=== PATIENT | male | born 1965 | race Two or more races ===

== ENCOUNTER 2020-06-03 12:13 | Inpatient (IN) | payer OTHER ==
[~2020-06-03] VITALS: Ht 172.7 cm; Wt 97.2 kg
--- NOTE | 2020-06-03 12:38 | NUR ---
PATIENT WHEELED BACK FROM TRIAGE WITH CHIEF C./O SOB. PATIENT STATES THIS STARTED YESTYERDAY, PATIENT STATES HE HAS BEEN COUGHING. PATIENT DENIES N/V/D, DENIES DEWITT, DENIES FEVER. PATIENT STATES NO ONE ELSE AT HOME IS SICK. NADN, PATIENT CONNECTED TO ORDERLY, O2 SATURATION 87% RA, PLACED PATIENT ON 3 LPM NC, O2 SATURATION INCREASED TO 92%, CALL LIGHT WITHIN REACH.
--- NOTE | 2020-06-03 13:10 | NUR ---
ER PROVIDER AT BEDSIDE FOR EVALUATION.
--- NOTE | 2020-06-03 13:37 | NUR ---
IMAGING AT BEDSIDE.
[2020-06-03 13:52] LABS: BASOPHILS % (AUTO) 0 % (0-1); EOSINOPHILS % (AUTO) 0 % (1-7); LYMPHOCYTES % (AUTO) 10 % (22-44); MEAN CORPUSCULAR HEMOGLOBIN 31.7 pg (27.5-34.5); MEAN CORPUSCULAR HGB CONC 34.9 g/dL (33.2-36.2); MEAN PLATELET VOLUME 8.9 fL (7.4-10.4); MONOCYTES % (AUTO) 10 % (2-9); NEUTROPHILS % (AUTO) 80 % (42-75); PLATELET COUNT 198 x10^3/uL (130-400); RED BLOOD COUNT 4.74 x10^6/uL (4.38-5.82); RED CELL DISTRIBUTION WIDTH 12.2 % (9.4-14.8)
[2020-06-03 13:55] LABS: MD NO
[2020-06-03 13:57] LABS: ALANINE AMINOTRANSFERASE 27 U/L (12-78); ALBUMIN 2.9 g/dL (3.4-5.0); ANION GAP 4 mmol/L (5-15); CALCIUM 8.3 mg/dL (8.5-10.1); CHLORIDE 99 mmol/L (98-107); CREATININE 0.96 mg/dL (0.7-1.3)
[2020-06-03 14:00] LABS: ALKALINE PHOSPHATASE 52 U/L (45-117); BILIRUBIN,TOTAL 0.8 mg/dL (0.2-1.0); TROPONIN I < 0.015 ng/mL (0.000-0.045)
[2020-06-03] MEDS ORDERED: CEFTRIAXONE PMX 1GM/50ML 50 ML ONE (14:42)
--- NOTE | 2020-06-03 14:56 | NUR ---
20 GAUGE IV STARTED LEFT AC, ANA LAURA DESAI, SHAWNA, CALL LIGHT WITHIN REACH.
[2020-06-03] MEDS ORDERED: CEFTRIAXONE PMX 1GM/50ML 50 ML IVPB ONE (15:00)
[2020-06-03] MEDS ORDERED: ACETAMINOPHEN 325 MG TABLET PO PRN (15:30)
[2020-06-03] MEDS ORDERED: ONDANSETRON 2MG/ML, 2ML IVPush PRN (15:30)
[2020-06-03] MEDS ORDERED: DIPHENHYDRAMINE 25 MG CAPSULE PO PRN (15:30)
[2020-06-03] MEDS ORDERED: hydrALAzine 20 MG/ML, 1ML IVPush PRN (15:30)
[2020-06-03] MEDS ORDERED: SODIUM CHLORIDE FLUSH 10ML SYR IVF ONE (15:30)
[2020-06-03] MEDS ORDERED: THIAMINE 100MG TABLET PO ONE (15:30)
[2020-06-03] MEDS ORDERED: ONDANSETRON ODT 4 MG PO PRN (15:30)
[2020-06-03] MEDS ORDERED: AZITHROMYCIN 500 MG in SODIUM CHLORIDE 0.9% 250 ML IV ONE (16:00)
[2020-06-03] MEDS ORDERED: ENOXAPARIN 40 MG/0.4 ML ONE (16:06)
[2020-06-03] MEDS ORDERED: THIAMINE 100MG TABLET ONE (16:07)
[2020-06-03] MEDS ORDERED: ASCORBIC ACID 500 MG TABLET ONE (16:07)
[2020-06-03] MEDS: ENOXAPARIN 40 MG/0.4 ML SQ SCH (16:24)
[2020-06-03] MEDS: SODIUM CHLORIDE 0.9% 1,000 ML IV SCH (16:25)
[2020-06-03] MEDS: ASCORBIC ACID 500 MG TABLET PO SCH (16:25)
--- NOTE | 2020-06-03 16:30 | NUR ---
PATIENT MEDICATED PER eMAR, FOOD TRAY ORDERED, O2 SATURATION DROPPED TO 78%-80%. PLACED PATIENT ON 4 LPM SIMPLE O2 MASK, OXYGEN SATURATION BACK UP TO 94%-95%. NADN, CONNECTED TO [employer]DRETTE OWNER, CALL LIGHT WITHIN REACH.
--- NOTE | 2020-06-03 16:59 | NUR ---
FOOD TRAY PROVIDED TO PATIENT.
--- NOTE | 2020-06-03 18:22 | NUR ---
[facility] O2 SATURATION IS 95%-96% ON 6 LPM NON-REBREATHER MASK, CALL LIGHT WITHIN REACH, WILL CONTINUE TO MONITOR.
--- NOTE | 2020-06-03 18:38 | NUR ---
PATIENT TRANSFERRED IN STABLE CONDITION VIA GURNEY TO [facility] FLOOR WITH ANALYSIS EVALUATOR. ALL PATIENT BELONGINGS GATHERED AND TAKEN WITH PATIENT TO FLOOR.
[2020-06-03 18:46] VITALS: BP 113/70
[2020-06-03 20:00] VITALS: BP 110/78
[2020-06-03] MEDS: GUAIFENESIN/DM 200-20MG, 10ML UDC PO PRN (20:48)
[2020-06-04] VITALS (8 sets, daily range): BP systolic 109–127; BP diastolic 55–84
[2020-06-04] MEDS: SODIUM CHLORIDE 0.9% 1,000 ML IV SCH ×2 (01:28→12:32)
[2020-06-04 06:29] LABS: BASOPHILS % (AUTO) 0 % (0-1); EOSINOPHILS % (AUTO) 0 % (1-7); LYMPHOCYTES % (AUTO) 11 % (22-44); MEAN CORPUSCULAR HEMOGLOBIN 31.8 pg (27.5-34.5); MEAN CORPUSCULAR HGB CONC 34.9 g/dL (33.2-36.2); MEAN PLATELET VOLUME 8.9 fL (7.4-10.4); MONOCYTES % (AUTO) 8 % (2-9); NEUTROPHILS % (AUTO) 81 % (42-75); PLATELET COUNT 182 x10^3/uL (130-400); RED BLOOD COUNT 4.65 x10^6/uL (4.38-5.82)
[2020-06-04 06:33] LABS: MD NO
[2020-06-04 06:43] LABS: ALBUMIN 2.5 g/dL (3.4-5.0); ANION GAP 6 mmol/L (5-15); CALCIUM 7.9 mg/dL (8.5-10.1); CHLORIDE 103 mmol/L (98-107)
[2020-06-04 06:52] LABS: ALANINE AMINOTRANSFERASE 34 U/L (12-78); ALKALINE PHOSPHATASE 48 U/L (45-117); BILIRUBIN,TOTAL 0.9 mg/dL (0.2-1.0); CREATININE 0.58 mg/dL (0.7-1.3); TOTAL PROTEIN 6.6 g/dL (6.4-8.2)
[2020-06-04] MEDS: CHOLECALCIFEROL 1,000 UNIT TABLET PO SCH (08:05)
[2020-06-04] MEDS: ZINC SULFATE 220 MG CAPSULE PO SCH (08:05)
[2020-06-04] MEDS: DEXAMETHASONE 4 MG TABLET PO SCH (08:05)
[2020-06-04] MEDS: AZITHROMYCIN 500 MG TABLET PO SCH (08:05)
[2020-06-04] MEDS: ASCORBIC ACID 500 MG TABLET PO SCH ×2 (08:05→16:41)
[2020-06-04] MEDS ORDERED: REMDESIVIR 200 MG in SODIUM CHLORIDE 0.9% 250 ML IVPB ONE (14:00)
[2020-06-04] MEDS: ENOXAPARIN 40 MG/0.4 ML SQ SCH (16:41)
[2020-06-04] MEDS: CEFTRIAXONE PMX 1GM/50ML 50 ML IV SCH (16:41)
[2020-06-04] MEDS: BENZONATATE 100 MG CAPSULE PO SCH ×2 (17:37→23:41)
[2020-06-04] MEDS: GUAIFENESIN/DM 200-20MG, 10ML UDC PO PRN (17:37)
[2020-06-05] MEDS: GUAIFENESIN/DM 200-20MG, 10ML UDC PO PRN ×2 (00:54→19:43)
[2020-06-05] MEDS: AZITHROMYCIN 500 MG TABLET PO SCH (08:33)
[2020-06-05] MEDS: ZINC SULFATE 220 MG CAPSULE PO SCH (08:34)
[2020-06-05] MEDS: ASCORBIC ACID 500 MG TABLET PO SCH ×2 (08:34→16:07)
[2020-06-05] MEDS: CHOLECALCIFEROL 1,000 UNIT TABLET PO SCH (08:34)
[2020-06-05] MEDS: DEXAMETHASONE 4 MG TABLET PO SCH (08:34)
[2020-06-05] MEDS: BENZONATATE 100 MG CAPSULE PO SCH ×2 (08:34→16:07)
[2020-06-05 08:37] VITALS: BP 114/77
[2020-06-05 14:02] VITALS: BP 108/71
[2020-06-05] MEDS: REMDESIVIR 100 MG in SODIUM CHLORIDE 0.9% 250 ML IVPB SCH (14:08)
[2020-06-05 14:40] LABS: ALANINE AMINOTRANSFERASE 45 U/L (12-78); ALBUMIN 2.6 g/dL (3.4-5.0); ANION GAP 7 mmol/L (5-15); CALCIUM 8.6 mg/dL (8.5-10.1); CHLORIDE 106 mmol/L (98-107); CREATININE 0.75 mg/dL (0.7-1.3)
[2020-06-05 14:42] LABS: ALKALINE PHOSPHATASE 48 U/L (45-117); BILIRUBIN,TOTAL 0.4 mg/dL (0.2-1.0); TOTAL PROTEIN 6.9 g/dL (6.4-8.2)
[2020-06-05] MEDS: CEFTRIAXONE PMX 1GM/50ML 50 ML IV SCH (16:00)
[2020-06-05] MEDS: ENOXAPARIN 40 MG/0.4 ML SQ SCH (16:07)
[2020-06-05 19:45] VITALS: BP_SYST 108; BP_SYST 114; BP_DIAS 71; BP_DIAS 75
[2020-06-05 22:14] VITALS: BP 114/75
[2020-06-06] VITALS (7 sets, daily range): BP systolic 112–128; BP diastolic 77–86
[2020-06-06] MEDS: BENZONATATE 100 MG CAPSULE PO SCH ×4 (00:24→20:35)
[2020-06-06 06:30] LABS: CALCIUM 8.8 mg/dL (8.5-10.1); CHLORIDE 104 mmol/L (98-107)
[2020-06-06 06:36] LABS: ALANINE AMINOTRANSFERASE 43 U/L (12-78); ALBUMIN 2.5 g/dL (3.4-5.0); ALKALINE PHOSPHATASE 48 U/L (45-117); ANION GAP 7 mmol/L (5-15); BILIRUBIN,TOTAL 0.6 mg/dL (0.2-1.0); CREATININE 0.69 mg/dL (0.7-1.3); TOTAL PROTEIN 6.8 g/dL (6.4-8.2)
[2020-06-06 08:56] LABS: HCT (SEDRATE) 42.5 % (39.2-51.8)
[2020-06-06 09:08] LABS: C-REACTIVE PROTEIN, QUANT 6.1 mg/dL (0.02-0.49)
[2020-06-06] MEDS: CHOLECALCIFEROL 1,000 UNIT TABLET PO SCH (09:46)
[2020-06-06] MEDS: ASCORBIC ACID 500 MG TABLET PO SCH ×2 (09:46→15:07)
[2020-06-06] MEDS: DEXAMETHASONE 4 MG TABLET PO SCH (09:46)
[2020-06-06] MEDS: AZITHROMYCIN 500 MG TABLET PO SCH (09:46)
[2020-06-06] MEDS: ZINC SULFATE 220 MG CAPSULE PO SCH (09:46)
[2020-06-06] MEDS: ENOXAPARIN 40 MG/0.4 ML SQ SCH (15:07)
[2020-06-06] MEDS: REMDESIVIR 100 MG in SODIUM CHLORIDE 0.9% 250 ML IVPB SCH (15:07)
[2020-06-06] MEDS: GUAIFENESIN/DM 200-20MG, 10ML UDC PO PRN (15:18)
[2020-06-06] MEDS: CEFTRIAXONE PMX 1GM/50ML 50 ML IV SCH (17:47)
[2020-06-07 00:56] VITALS: BP 116/81
[2020-06-07] MEDS: GUAIFENESIN/DM 200-20MG, 10ML UDC PO PRN ×2 (01:07→15:15)
[2020-06-07 06:51] VITALS: BP 103/68
[2020-06-07] MEDS ORDERED: SODIUM CHLORIDE NASAL SPRAY 45ML BOTTLE NAS PRN (08:00)
[2020-06-07 08:01] LABS: BASOPHILS % (AUTO) 1 % (0-1); EOSINOPHILS % (AUTO) 0 % (1-7); LYMPHOCYTES % (AUTO) 8 % (22-44); MEAN CORPUSCULAR HEMOGLOBIN 32.1 pg (27.5-34.5); MEAN CORPUSCULAR HGB CONC 35.2 g/dL (33.2-36.2); MEAN PLATELET VOLUME 9.5 fL (7.4-10.4); MONOCYTES % (AUTO) 9 % (2-9); NEUTROPHILS % (AUTO) 82 % (42-75); PLATELET COUNT 320 x10^3/uL (130-400); RED BLOOD COUNT 4.91 x10^6/uL (4.38-5.82); RED CELL DISTRIBUTION WIDTH 12.3 % (9.4-14.8)
[2020-06-07 08:12] LABS: CHLORIDE 103 mmol/L (98-107)
[2020-06-07 08:18] LABS: D-DIMER 0.78 ug/mlFEU (0.00-0.52); INTERNATIONAL NORMALIZED RATIO 1.27 (0.93-1.1); PROTHROMBIN TIME 13.4 Seconds (9.6-11.5)
[2020-06-07 08:34] LABS: ANION GAP 9 mmol/L (5-15); CALCIUM 8.8 mg/dL (8.5-10.1); CREATININE 0.67 mg/dL (0.7-1.3)
[2020-06-07 08:35] LABS: ALANINE AMINOTRANSFERASE 49 U/L (12-78); ALBUMIN 2.6 g/dL (3.4-5.0); ALKALINE PHOSPHATASE 52 U/L (45-117); BILIRUBIN,TOTAL 0.7 mg/dL (0.2-1.0); TOTAL PROTEIN 7.1 g/dL (6.4-8.2)
[2020-06-07 09:43] LABS: MD NO
[2020-06-07 09:44] LABS: HCT (SEDRATE) 44.8 % (39.2-51.8)
[2020-06-07] MEDS: ZINC SULFATE 220 MG CAPSULE PO SCH (09:52)
[2020-06-07] MEDS: ASCORBIC ACID 500 MG TABLET PO SCH ×2 (09:52→15:15)
[2020-06-07] MEDS: CHOLECALCIFEROL 1,000 UNIT TABLET PO SCH (09:52)
[2020-06-07] MEDS: BENZONATATE 100 MG CAPSULE PO SCH ×3 (09:52→19:40)
[2020-06-07] MEDS: AZITHROMYCIN 500 MG TABLET PO SCH (09:52)
[2020-06-07] MEDS: DEXAMETHASONE 4 MG TABLET PO SCH (09:52)
[2020-06-07 12:53] VITALS: BP 113/66
[2020-06-07] MEDS: REMDESIVIR 100 MG in SODIUM CHLORIDE 0.9% 250 ML IVPB SCH (14:25)
[2020-06-07] MEDS: ENOXAPARIN 40 MG/0.4 ML SQ SCH (15:16)
[2020-06-07] MEDS: DOCUSATE 100 MG CAPSULE PO PRN (15:16)
[2020-06-07] MEDS: CEFTRIAXONE PMX 1GM/50ML 50 ML IV SCH (17:24)
[2020-06-07 19:27] VITALS: BP 107/71
[2020-06-08 02:36] VITALS: BP 118/75
[2020-06-08 04:27] LABS: BASOPHILS % (AUTO) 0 % (0-1); EOSINOPHILS % (AUTO) 0 % (1-7); LYMPHOCYTES % (AUTO) 9 % (22-44); MEAN CORPUSCULAR HEMOGLOBIN 31.8 pg (27.5-34.5); MEAN CORPUSCULAR HGB CONC 34.5 g/dL (33.2-36.2); MEAN PLATELET VOLUME 9.3 fL (7.4-10.4); MONOCYTES % (AUTO) 11 % (2-9); NEUTROPHILS % (AUTO) 80 % (42-75); PLATELET COUNT 356 x10^3/uL (130-400); RED BLOOD COUNT 5.04 x10^6/uL (4.38-5.82); RED CELL DISTRIBUTION WIDTH 12.5 % (9.4-14.8)
[2020-06-08 04:32] LABS: MD NO
[2020-06-08 04:37] LABS: CHLORIDE 102 mmol/L (98-107)
[2020-06-08 04:47] LABS: ALANINE AMINOTRANSFERASE 45 U/L (12-78); ALBUMIN 2.7 g/dL (3.4-5.0); ALKALINE PHOSPHATASE 51 U/L (45-117); ANION GAP 6 mmol/L (5-15); BILIRUBIN,TOTAL 0.5 mg/dL (0.2-1.0); CALCIUM 8.9 mg/dL (8.5-10.1); CREATININE 0.64 mg/dL (0.7-1.3); D-DIMER 0.75 ug/mlFEU (0.00-0.52); INTERNATIONAL NORMALIZED RATIO 1.27 (0.93-1.1); PROTHROMBIN TIME 13.4 Seconds (9.6-11.5)
[2020-06-08 05:03] LABS: HCT (SEDRATE) 46.4 % (39.2-51.8)
[2020-06-08 06:35] VITALS: BP 112/76
[2020-06-08] MEDS ORDERED: Enoxaparin 1 mg/kg protocol SQ SCH (07:00)
[2020-06-08] MEDS: CHOLECALCIFEROL 1,000 UNIT TABLET PO SCH (08:08)
[2020-06-08] MEDS: BENZONATATE 100 MG CAPSULE PO SCH ×3 (08:09→20:33)
[2020-06-08] MEDS: AZITHROMYCIN 500 MG TABLET PO SCH (08:09)
[2020-06-08] MEDS: DEXAMETHASONE 4 MG TABLET PO SCH (08:09)
[2020-06-08] MEDS: ZINC SULFATE 220 MG CAPSULE PO SCH (08:09)
[2020-06-08] MEDS: GUAIFENESIN/DM 200-20MG, 10ML UDC PO PRN ×2 (08:14→18:14)
[2020-06-08] MEDS: DOCUSATE 100 MG CAPSULE PO PRN (08:15)
[2020-06-08] MEDS: ASCORBIC ACID 500 MG TABLET PO SCH ×2 (08:15→15:52)
[2020-06-08 12:00] VITALS: BP 125/69
[2020-06-08] MEDS: REMDESIVIR 100 MG in SODIUM CHLORIDE 0.9% 250 ML IVPB SCH (13:18)
[2020-06-08] MEDS: ENOXAPARIN 40 MG/0.4 ML SQ SCH (15:52)
[2020-06-08] MEDS: CEFTRIAXONE PMX 1GM/50ML 50 ML IV SCH (16:14)
[2020-06-08 19:39] VITALS: BP 104/71
[2020-06-09 02:46] VITALS: BP 121/81
[2020-06-09 03:36] LABS: BASOPHILS % (AUTO) 0 % (0-1); EOSINOPHILS % (AUTO) 0 % (1-7); LYMPHOCYTES % (AUTO) 9 % (22-44); MEAN CORPUSCULAR HEMOGLOBIN 31.3 pg (27.5-34.5); MEAN CORPUSCULAR HGB CONC 34.4 g/dL (33.2-36.2); MEAN PLATELET VOLUME 9.2 fL (7.4-10.4); MONOCYTES % (AUTO) 9 % (2-9); NEUTROPHILS % (AUTO) 81 % (42-75); PLATELET COUNT 381 x10^3/uL (130-400); RED BLOOD COUNT 4.89 x10^6/uL (4.38-5.82); RED CELL DISTRIBUTION WIDTH 12.2 % (9.4-14.8)
[2020-06-09 03:39] LABS: MD NO
[2020-06-09 03:51] LABS: CHLORIDE 102 mmol/L (98-107)
[2020-06-09 04:02] LABS: ALANINE AMINOTRANSFERASE 39 U/L (12-78); ALBUMIN 2.5 g/dL (3.4-5.0); ALKALINE PHOSPHATASE 52 U/L (45-117); ANION GAP 5 mmol/L (5-15); BILIRUBIN,TOTAL 0.4 mg/dL (0.2-1.0); CALCIUM 8.5 mg/dL (8.5-10.1); CREATININE 0.66 mg/dL (0.7-1.3); TOTAL PROTEIN 6.7 g/dL (6.4-8.2)
[2020-06-09 06:52] VITALS: BP 103/67
[2020-06-09] MEDS: ZINC SULFATE 220 MG CAPSULE PO SCH (07:47)
[2020-06-09] MEDS: BENZONATATE 100 MG CAPSULE PO SCH ×3 (07:47→20:39)
[2020-06-09] MEDS: DEXAMETHASONE 4 MG TABLET PO SCH (07:48)
[2020-06-09] MEDS: AZITHROMYCIN 500 MG TABLET PO SCH (07:48)
[2020-06-09] MEDS: CHOLECALCIFEROL 1,000 UNIT TABLET PO SCH (07:48)
[2020-06-09] MEDS: ASCORBIC ACID 500 MG TABLET PO SCH ×2 (07:48→16:29)
[2020-06-09 12:38] VITALS: BP 109/61
[2020-06-09] MEDS: GUAIFENESIN/DM 200-20MG, 10ML UDC PO PRN (12:58)
[2020-06-09] MEDS ORDERED: FUROSEMIDE 20 MG/2 ML IV ONE (16:00)
[2020-06-09] MEDS: ENOXAPARIN 40 MG/0.4 ML SQ SCH (16:28)
[2020-06-09] MEDS: CEFTRIAXONE PMX 1GM/50ML 50 ML IV SCH (16:29)
[2020-06-09 21:02] VITALS: BP 107/77
[2020-06-10 02:46] VITALS: BP 106/70
[2020-06-10 03:43] LABS: BASOPHILS % (AUTO) 1 % (0-1); EOSINOPHILS % (AUTO) 0 % (1-7); LYMPHOCYTES % (AUTO) 8 % (22-44); MEAN CORPUSCULAR HEMOGLOBIN 31.7 pg (27.5-34.5); MEAN CORPUSCULAR HGB CONC 34.7 g/dL (33.2-36.2); MEAN PLATELET VOLUME 8.8 fL (7.4-10.4); MONOCYTES % (AUTO) 8 % (2-9); NEUTROPHILS % (AUTO) 82 % (42-75); PLATELET COUNT 428 x10^3/uL (130-400); RED BLOOD COUNT 5.01 x10^6/uL (4.38-5.82); RED CELL DISTRIBUTION WIDTH 12.2 % (9.4-14.8)
[2020-06-10 03:47] LABS: MD NO
[2020-06-10 03:50] LABS: ALBUMIN 2.5 g/dL (3.4-5.0); ANION GAP 4 mmol/L (5-15); CALCIUM 8.6 mg/dL (8.5-10.1); CHLORIDE 101 mmol/L (98-107)
[2020-06-10 04:07] LABS: ALANINE AMINOTRANSFERASE 36 U/L (12-78); ALKALINE PHOSPHATASE 54 U/L (45-117); BILIRUBIN,TOTAL 0.6 mg/dL (0.2-1.0); C-REACTIVE PROTEIN, QUANT 1.44 mg/dL (0.02-0.49); CREATININE 0.77 mg/dL (0.7-1.3); TOTAL PROTEIN 6.8 g/dL (6.4-8.2)
[2020-06-10] MEDS: DEXAMETHASONE 4 MG TABLET PO SCH (07:51)
[2020-06-10] MEDS: CHOLECALCIFEROL 1,000 UNIT TABLET PO SCH (07:51)
[2020-06-10] MEDS: BENZONATATE 100 MG CAPSULE PO SCH ×3 (07:51→21:22)
[2020-06-10] MEDS: ZINC SULFATE 220 MG CAPSULE PO SCH (07:51)
[2020-06-10] MEDS: ASCORBIC ACID 500 MG TABLET PO SCH ×2 (07:51→17:03)
[2020-06-10 08:06] VITALS: BP 93/58
[2020-06-10 12:43] VITALS: BP 105/69
[2020-06-10] MEDS: ENOXAPARIN 40 MG/0.4 ML SQ SCH (15:27)
[2020-06-10] MEDS: CEFTRIAXONE PMX 1GM/50ML 50 ML IV SCH (15:28)
[2020-06-10] MEDS ORDERED: FUROSEMIDE 20 MG/2 ML IV ONE (18:00)
[2020-06-10 21:23] VITALS: BP 112/73
[2020-06-11 02:45] VITALS: BP 101/70
[2020-06-11 06:07] LABS: ALBUMIN 2.5 g/dL (3.4-5.0); ANION GAP 3 mmol/L (5-15); CALCIUM 8.3 mg/dL (8.5-10.1); CHLORIDE 103 mmol/L (98-107)
[2020-06-11 06:11] LABS: ALANINE AMINOTRANSFERASE 45 U/L (12-78); ALKALINE PHOSPHATASE 57 U/L (45-117); BILIRUBIN,TOTAL 0.4 mg/dL (0.2-1.0); CREATININE 0.73 mg/dL (0.7-1.3); TOTAL PROTEIN 6.5 g/dL (6.4-8.2)
[2020-06-11 06:17] LABS: BASOPHILS % (AUTO) 0 % (0-1); EOSINOPHILS % (AUTO) 0 % (1-7); LYMPHOCYTES % (AUTO) 7 % (22-44); MEAN CORPUSCULAR HEMOGLOBIN 31.4 pg (27.5-34.5); MEAN CORPUSCULAR HGB CONC 34.5 g/dL (33.2-36.2); MEAN PLATELET VOLUME 9.4 fL (7.4-10.4); MONOCYTES % (AUTO) 8 % (2-9); NEUTROPHILS % (AUTO) 85 % (42-75); PLATELET COUNT 414 x10^3/uL (130-400); RED BLOOD COUNT 4.96 x10^6/uL (4.38-5.82); RED CELL DISTRIBUTION WIDTH 12.4 % (9.4-14.8)
[2020-06-11 06:47] LABS: MD NO
[2020-06-11] MEDS: CHOLECALCIFEROL 1,000 UNIT TABLET PO SCH (08:12)
[2020-06-11] MEDS: ZINC SULFATE 220 MG CAPSULE PO SCH (08:12)
[2020-06-11] MEDS: DEXAMETHASONE 4 MG TABLET PO SCH (08:12)
[2020-06-11] MEDS: ASCORBIC ACID 500 MG TABLET PO SCH ×2 (08:12→16:01)
[2020-06-11] MEDS: BENZONATATE 100 MG CAPSULE PO SCH ×3 (08:12→21:21)
[2020-06-11 09:14] VITALS: BP 108/60
[2020-06-11] MEDS ORDERED: FUROSEMIDE 20 MG/2 ML IV ONE (11:00)
[2020-06-11 12:44] VITALS: BP 102/67
[2020-06-11] MEDS: CEFTRIAXONE PMX 1GM/50ML 50 ML IV SCH (16:01)
[2020-06-11] MEDS: ENOXAPARIN 40 MG/0.4 ML SQ SCH (16:01)
[2020-06-11 19:41] VITALS: BP 101/62
[2020-06-12 01:58] VITALS: BP 106/69
[2020-06-12 06:24] LABS: BASOPHILS % (AUTO) 0 % (0-1); EOSINOPHILS % (AUTO) 0 % (1-7); LYMPHOCYTES % (AUTO) 5 % (22-44); MEAN CORPUSCULAR HEMOGLOBIN 31.7 pg (27.5-34.5); MEAN CORPUSCULAR HGB CONC 34.7 g/dL (33.2-36.2); MONOCYTES % (AUTO) 7 % (2-9); NEUTROPHILS % (AUTO) 87 % (42-75); PLATELET COUNT 451 x10^3/uL (130-400); RED BLOOD COUNT 4.81 x10^6/uL (4.38-5.82); RED CELL DISTRIBUTION WIDTH 12.3 % (9.4-14.8)
[2020-06-12 06:25] LABS: HCT (SEDRATE) 44.3 % (39.2-51.8)
[2020-06-12 06:28] LABS: MD NO
[2020-06-12 06:35] LABS: D-DIMER 0.41 ug/mlFEU (0.00-0.52)
[2020-06-12 06:43] LABS: CHLORIDE 105 mmol/L (98-107)
[2020-06-12 06:58] LABS: ALANINE AMINOTRANSFERASE 46 U/L (12-78); ALBUMIN 2.5 g/dL (3.4-5.0); ALKALINE PHOSPHATASE 53 U/L (45-117); ANION GAP 6 mmol/L (5-15); BILIRUBIN,TOTAL 0.3 mg/dL (0.2-1.0); C-REACTIVE PROTEIN, QUANT 0.45 mg/dL (0.02-0.49); CALCIUM 8.5 mg/dL (8.5-10.1); CREATININE 0.67 mg/dL (0.7-1.3); TOTAL PROTEIN 6.4 g/dL (6.4-8.2)
[2020-06-12 07:36] VITALS: BP 107/72
[2020-06-12] MEDS: DEXAMETHASONE 4 MG TABLET PO SCH (08:32)
[2020-06-12] MEDS: ASCORBIC ACID 500 MG TABLET PO SCH ×2 (08:32→16:25)
[2020-06-12] MEDS: CHOLECALCIFEROL 1,000 UNIT TABLET PO SCH (08:32)
[2020-06-12] MEDS: ZINC SULFATE 220 MG CAPSULE PO SCH (08:32)
[2020-06-12] MEDS: BENZONATATE 100 MG CAPSULE PO SCH ×3 (08:32→20:29)
[2020-06-12 13:52] VITALS: BP 108/65
[2020-06-12] MEDS: CEFTRIAXONE PMX 1GM/50ML 50 ML IV SCH (16:24)
[2020-06-12] MEDS: ENOXAPARIN 40 MG/0.4 ML SQ SCH (16:25)
[2020-06-12 20:30] VITALS: BP 114/69
[2020-06-12] MEDS: GUAIFENESIN/DM 200-20MG, 10ML UDC PO PRN (20:35)
[2020-06-13 02:27] VITALS: BP 113/66
[2020-06-13 04:47] LABS: BASOPHILS % (AUTO) 0 % (0-1); EOSINOPHILS % (AUTO) 0 % (1-7); LYMPHOCYTES % (AUTO) 7 % (22-44); MEAN CORPUSCULAR HEMOGLOBIN 31.5 pg (27.5-34.5); MEAN CORPUSCULAR HGB CONC 35.1 g/dL (33.2-36.2); MONOCYTES % (AUTO) 9 % (2-9); NEUTROPHILS % (AUTO) 84 % (42-75); PLATELET COUNT 448 x10^3/uL (130-400); RED BLOOD COUNT 4.49 x10^6/uL (4.38-5.82); RED CELL DISTRIBUTION WIDTH 12.2 % (9.4-14.8)
[2020-06-13 04:50] LABS: ALANINE AMINOTRANSFERASE 50 U/L (12-78); ALBUMIN 2.4 g/dL (3.4-5.0); ANION GAP 3 mmol/L (5-15); CALCIUM 8.2 mg/dL (8.5-10.1); CHLORIDE 104 mmol/L (98-107); CREATININE 0.62 mg/dL (0.7-1.3)
[2020-06-13 04:53] LABS: ALKALINE PHOSPHATASE 49 U/L (45-117); BILIRUBIN,TOTAL 0.3 mg/dL (0.2-1.0); TOTAL PROTEIN 5.9 g/dL (6.4-8.2)
[2020-06-13 06:45] LABS: MD SCAN
[2020-06-13] MEDS ORDERED: DEXAMETHASONE 4 MG TABLET PO SCH (07:30)
[2020-06-13] MEDS ORDERED: SODIUM CHLORIDE 0.9% 1,000 ML IV SCH (08:00)
[2020-06-13] MEDS ORDERED: ACETAMINOPHEN 325 MG TABLET PO PRN (08:00)
[2020-06-13 08:24] VITALS: BP 107/65
[2020-06-13] MEDS: ZINC SULFATE 220 MG CAPSULE PO SCH (08:43)
[2020-06-13] MEDS: BENZONATATE 100 MG CAPSULE PO SCH ×2 (08:43→16:35)
[2020-06-13] MEDS: ASCORBIC ACID 500 MG TABLET PO SCH ×2 (08:44→16:35)
[2020-06-13] MEDS: CHOLECALCIFEROL 1,000 UNIT TABLET PO SCH (08:44)
[2020-06-13 12:10] VITALS: BP 120/75
[2020-06-13] MEDS ORDERED: ACET325T26 PO (13:16)
[2020-06-13] MEDS: ENOXAPARIN 40 MG/0.4 ML SQ SCH (16:00)
[2020-06-13] MEDS ORDERED: SENNA/DOCUSATE TABLET PO SCH (21:00)
[2020-06-14] MEDS ORDERED: DEXAMETHASONE 1 MG TABLET PO SCH (07:30)
== END 2020-06-13 16:44 | disposition home or self-care (01) | DRG 871 ==
LOC: ED 14:47 → SUATTDRO 15:16 → EDIP 15:32 → 3N 18:38
PROVIDERS: ADMIT Hospitalist; ATTEND Internal Medicine
PROC: XW033E5 Introduction of Remdesivir Anti-infective into Peripheral Vein, Percutaneous Approach, New Technology Group 5 (ICD-10-PCS; principal; 2020-06-04)
PROC: 5A0935A Assistance with Respiratory Ventilation, Less than 24 Consecutive Hours, High Flow/Velocity Cannula (ICD-10-PCS; 2020-06-04)
PROC: 5A0935A Assistance with Respiratory Ventilation, Less than 24 Consecutive Hours, High Flow/Velocity Cannula (ICD-10-PCS; 2020-06-05)
DX: A41.89 Other specified sepsis (principal); J12.89 Other viral pneumonia; J96.01 Acute respiratory failure with hypoxia; U07.1 COVID-19; E87.1 Hypo-osmolality and hyponatremia; E66.9 Obesity, unspecified; E86.0 Dehydration; R70.0 Elevated erythrocyte sedimentation rate; R79.82 Elevated C-reactive protein (CRP); Z79.899 Other long term (current) drug therapy; Z79.891 Long term (current) use of opiate analgesic; Z79.01 Long term (current) use of anticoagulants
CPT/HCPCS: 36415; 71045; 80053; 82728; 83605; 83615; 83735; 83880; 84100; 84145; 84484; 85025; 85379; 85384; 85610; 85651; 86140; 87040; 93005; 96365; 99285; G0378; J0456; J0696; J1650; J1940; J7030; J7050; U0003